=== PATIENT | male | born 1980 | race Caucasian/White ===

== ENCOUNTER 2016-08-27 10:37 | Emergency (ER) | payer OTHER ==
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
--- NOTE | 2016-08-31 03:52 | ED MED RECONCILIATION SUMMARY ---
Patient: BRANDON ALMENDAREZ Medication Reconciliation Report [facility] VisitID: [id number] [address] [place] [address] 36y, M Registration Date/Time: 08/27/2016 Weight: 113.3 kg Height/Length: 75 in. BMI: 31.2 ALLERGIES: Codeine, Sulfa Antibiotics The patient's Home Medications are listed below: NONE. The source(s) of the original Home Medication information: patient The following Medications were given to the patient in the Emergency Department: None. The following Medications were prescribed to the patient: None.
--- NOTE | 2016-08-31 03:52 | ED MED RECONCILIATION SUMMARY ---
Patient: BRANDON ALMENDAREZ Medication Reconciliation Report [facility] VisitID: [id number] [address] [place] [address] 36y, M Registration Date/Time: 08/27/2016 Weight: 113.3 kg Height/Length: 75 in. BMI: 31.2 ALLERGIES: Codeine, Sulfa Antibiotics The patient's Home Medications are listed below: NONE. The source(s) of the original Home Medication information: patient The following Medications were given to the patient in the Emergency Department: None. The following Medications were prescribed to the patient: None.
--- NOTE | 2016-08-31 03:52 | ED MAR SUMMARY ---
..... Medication Administration Record [facility] [address], [place] [id number] Patient: BRANDON ALMENDAREZ Visit ID: [id number] 36y, M Weight: 113.3 kg Height/Length: 75 in BMI: 31.2 ALLERGIES: Sulfa Antibiotics, Codeine
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
--- NOTE | 2016-08-31 03:52 | ED MAR SUMMARY ---
..... Medication Administration Record [facility] [address] [place], [place] [id number] Patient: BRANDON ALMENDAREZ Visit ID: [id number] 36y, M Weight: 113.3 kg Height/Length: 75 in BMI: 31.2 ALLERGIES: Sulfa Antibiotics, Codeine
== END 2016-08-27 13:06 | disposition home or self-care (01) ==
LOC: ED SRH 10:37
DX: S46.012A Strain of muscle(s) and tendon(s) of the rotator cuff of left shoulder, initial encounter (principal); V43.52XA Car driver injured in collision with other type car in traffic accident, initial encounter; Y93.9 Activity, unspecified; Y92.009 Unspecified place in unspecified non-institutional (private) residence as the place of occurrence of the external cause; Y99.9 Unspecified external cause status; I10 Essential (primary) hypertension; Z88.2 Allergy status to sulfonamides; Z88.5 Allergy status to narcotic agent